=== PATIENT | female | born 1995 | race Caucasian/White ===

== ENCOUNTER 2019-09-29 | Emergency (ER) | payer BC, MEDICAID ==
[~2019-09-29] VITALS: Ht 162.6 cm; Wt 111.3 kg
[~2019-09-29] MED LIST: AMOX500C PO
[2019-09-29] MEDS ORDERED: PRED20TA PO (00:18)
[2019-09-29] MEDS ORDERED: HYDR25CA PO (00:18)
--- NOTE | 2019-09-29 00:19 | PHYS DOC ---
Past Medical History Past Medical History: No Pertinent History Past Surgical History: Other Additional Past Surgical Histo: Tubes in ears. Smoking Status: Current Every Day Smoker Alcohol Use: None Drug Use: None General Adult EDM: Chief Complaint: SKIN RASH/ABSCESS HPI: HPI: Patient is a 23-year-old otherwise healthy female who states that she has about a 24-hour history of a pruritic rash that started on her legs and now is on her arms. She was at work tonight and they suggested she come in for further evaluation. She denies any lip tongue or throat swelling. She said no difficulty breathing. She does not know of anything that she is gotten into that could have caused an allergic reaction. [] Review of Systems: Review of Systems: Constitutional: Denies fever or chills. [] Eyes: Denies change in visual acuity. [] HENT: Denies nasal congestion or sore throat. [] Respiratory: Denies cough or shortness of breath. [] Cardiovascular: Denies chest pain or edema. [] GI: Denies abdominal pain, nausea, vomiting, bloody stools or diarrhea. [] : Denies dysuria. [] Musculoskeletal: Denies back pain or joint pain. [] Integument: Per HPI [] Neurologic: Denies headache, focal weakness or sensory changes. [] Endocrine: Denies polyuria or polydipsia. [] Lymphatic: Denies swollen glands. [] Psychiatric: Denies depression or anxiety. [] Heart Score: Risk Factors: Risk Factors: DM, Current or recent (<one month) smoker, HTN, HLP, family history of CAD, obesity. Risk Scores: Score 0 - 3: 2.5% MACE over next 6 weeks - Discharge Home Score 4 - 6: 20.3% MACE over next 6 weeks - Admit for Clinical Observation Score 7 - 10: 72.7% MACE over next 6 weeks - Early Invasive Strategies Allergies: Allergies: Allergies Coded Allergies Type Severity Reaction Last Updated Verified cefaclor Allergy Intermediate 02/04/16 Yes Physical Exam: PE: Constitutional: Well developed, well nourished, no acute distress, non-toxic appearance. [] HENT: Normocephalic, atraumatic, bilateral external ears normal, oropharynx moist, no oral exudates, nose normal. [] Eyes: PERRLA, EOMI, conjunctiva normal, no discharge. [] Neck: Normal range of motion, no tenderness, supple, no stridor. [] Cardiovascular:Heart rate regular rhythm, no murmur [] Lungs & Thorax: Bilateral breath sounds clear to auscultation [] Abdomen: Bowel sounds normal, soft, no tenderness, no masses, no pulsatile masses. [] Skin: Diffuse urticarial rash. [] Back: No tenderness, no CVA tenderness. [] Extremities: No tenderness, no cyanosis, no clubbing, ROM intact, no edema. [] Neurologic: Alert and oriented X 3, normal motor function, normal sensory function, no focal deficits noted. [] Psychologic: Affect normal, judgement normal, mood normal. [] EKG: EKG: [] Radiology/Procedures: Radiology/Procedures: [] Course & Med Decision Making: Course & Med Decision Making Pertinent Labs and Imaging studies reviewed. (See chart for details) [] Dragon Disclaimer: Dragon Disclaimer: This electronic medical record was generated, in whole or in part, using a voice recognition dictation system. Departure Departure Impression: Primary Impression: Allergic reaction Qualified Codes: T78.40XA - Allergy, unspecified, initial encounter Disposition: HOME, SELF-CARE Condition: STABLE Referrals: NO PCP (PCP) Patient Instructions: Rash Additional Instructions: Take medication as directed. Return to the emergency department with any new or concerning symptoms Scripts Hydroxyzine Pamoate (VISTARIL) 25 Mg Capsule 25 MG PO Q6HRS PRN for ALLERGIES, #30 CAP Prov: TRUNG SAAVEDRA DO 09/29/19 Prednisone (PREDNISONE) 20 Mg Tablet 1 TAB PO TID PRN for COUGH, #21 TAB Prov: TRUNG SAAVEDRA DO 09/29/19 Justicifation of Admission Dx: Justifications for Admission: Justification of Admission Dx: No TRUNG SAAVEDRA DO Sep 29, 2019 00:19
[2019-09-29] MEDS ORDERED: predniSONE 20 MG TABLET PO ONE (00:30)
[2019-09-29 00:35] VITALS: BP 146/82
== END 2019-09-29 00:38 | disposition home or self-care (01) ==
LOC: ER
DX: L50.0 Allergic urticaria (principal); R21 Rash and other nonspecific skin eruption; F17.200 Nicotine dependence, unspecified, uncomplicated; Z98.890 Other specified postprocedural states; Z88.8 Allergy status to other drugs, medicaments and biological substances
CPT/HCPCS: 99283; J7512